=== PATIENT | male | born 1955 | race Caucasian/White ===

== ENCOUNTER 2019-04-11 23:54 | Inpatient (IN) | payer BC, OTHER ==
[~2019-04-11] VITALS: Ht 190.5 cm; Wt 124.3 kg
[2019-04-12] VITALS (7 sets, daily range): BP systolic 149–191; BP diastolic 77–96
[2019-04-12] MEDS ORDERED: FARXIGA10 MG PO (00:15)
[2019-04-12] MEDS ORDERED: MAXZIDE-25 MG1 EACH PO (00:17)
[2019-04-12] MEDS ORDERED: PEPCID40 MG PO (00:17)
[2019-04-12] MEDS ORDERED: CLARITIN10 MG PO (00:18)
[2019-04-12] MEDS ORDERED: ZANAFLEX4 MG PO (00:18)
[2019-04-12] MEDS ORDERED: PLAVIX 75 MG TA75 M1 PO (00:18)
[2019-04-12] MEDS ORDERED: ASPIR 8181 MG PO (00:18)
[2019-04-12] MEDS ORDERED: LIDOCAINE PAIN1 EACH TRANSDERM (00:19)
[2019-04-12] MEDS ORDERED: FLONASE 0.05%50 MCG NASAL (00:19)
[2019-04-12] MEDS ORDERED: VASCULERA630 MG PO (00:19)
[2019-04-12] MEDS ORDERED: OMEGA-31000 M1 PO (00:20)
[2019-04-12] MEDS ORDERED: UNICOMPLEX M TA1 TA1 PO (00:20)
[2019-04-12] MEDS ORDERED: GLUCOSAMINE HC500 MG PO (00:21)
[2019-04-12] MEDS ORDERED: ZETIA10 MG PO (00:21)
[2019-04-12] MEDS ORDERED: ZOMIG5 M1 PO (00:22)
[2019-04-12] MEDS ORDERED: EYE ITCH RELIEF5 ML OPHTHALMIC (00:23)
[2019-04-12] MEDS ORDERED: LOTEMAX5 ML OPHTHALMIC (00:24)
[2019-04-12] MEDS ORDERED: TEARS AGAIN15 ML OPHTHALMIC (00:24)
[2019-04-12] MEDS ORDERED: GLUTOSE GEL 1515 G1 PO (00:25)
[2019-04-12] MEDS ORDERED: AMLODIPINE BESY10 MG PO (00:26)
[2019-04-12 00:44] LABS: ABSOLUTE BASOPHILS 0.1 thou/uL (0.0-0.2); ABSOLUTE EOSINOPHILS 0.1 thou/uL (0.0-0.7); ABSOLUTE LYMPHOCYTES 1.7 thou/uL (0.8-5.3); ABSOLUTE MONOCYTES 0.6 thou/uL (0.0-1.2); ABSOLUTE NEUTROPHILS 4.5 thou/uL (1.6-8.1); BASOPHILS 1.1 %; EOSINOPHILS 1.1 %; HEMATOCRIT 41.5 % (42.0-52.0); HEMOGLOBIN 13.9 gm/dL (14.0-18.0); LYMPHOCYTES 24.1 %; MCH 30.1 pg (26.0-34.0); MCHC 33.5 g/dL (28.0-37.0); MONOCYTES 8.4 %; MPV 8.1 fl. (7.2-11.1); NUCLEATED RBCS 0 /100WBC; PLATELET COUNT* 235 thou/uL (150-400); POLYS 65.3 %; RBC 4.61 mil/uL (4.50-6.00); RDW-CV 14.8 % (10.5-14.5); WBC 6.9 thou/uL (4.0-11.0)
[2019-04-12 00:50] LABS: CALCIUM 8.7 mg/dL (8.5-10.1); CREATININE 1.7 mg/dL (0.6-1.3)
[2019-04-12 00:53] LABS: POTASSIUM 2.9 mmol/L (3.5-5.1)
[2019-04-12 00:55] LABS: ALBUMIN 3.1 g/dL (3.4-5.0); TOTAL BILIRUBIN 0.3 mg/dL (<0.1-1.0); TOTAL PROTEIN 5.8 g/dL (6.4-8.2)
[2019-04-12 10:56] LABS: PHOSPHORUS* 2.6 mg/dL (2.5-4.9)
--- NOTE | 2019-04-12 13:50 | NUR ---
CALLED FOR REPORT, WILL WAIT FOR HEARING AID REPAIR TECHNICIAN TO CALL BACK. PT TO GO TO ROOM 218
[2019-04-12 14:11] LABS: URINE BILIRUBIN NEGATIVE (Negative); URINE BLOOD NEGATIVE (Negative); URINE CLARITY CLEAR; URINE COLOR YELLOW; URINE GLUCOSE-RANDOM 2+ (Negative); URINE KETONES NEGATIVE (Negative); URINE LEUKOCYTES-REFLEX NEGATIVE (Negative); URINE NITRITE-REFLEX NEGATIVE (Negative); URINE PROTEIN TRACE (Negative); URINE UROBILINOGEN 0.2 E.U./dl (0.2-1.0)
--- NOTE | 2019-04-12 18:35 | NUR ---
PT VSS THIS SHIFT. PIX OF WOUND TAKEN AND DOCUMENTED. FAMILY SERVICE AIDE GAVE ADVICE ON WHAT DRESSING TO PLACE ON PT AND DR GOINS WANTS THE SITE COVERED. PT TOLERATING RA AND BEING UP AD KRISTOPHER AT THIS TIME. PT M/S STATUS. WILL CONTINUE TO MONITOR AND ASSESS
[2019-04-13] VITALS: BP 175/88
--- NOTE | 2019-04-13 01:50 | NUR ---
PT ALERT ORIENTED. UP AD KRISTOPHER IN ROOM. PT A FALL RISK AND TOLD HE NEEDS TO WEAR SOCKS AND CALL FOR ASSIST. PT REFUSE TO WEAR SOCKS AND NOT CALLING FOR ASSIST. PT STATED HE HAD MARIN THAT IS NOT BEING CONTROLLED WITH MEDICATION GIVEN. HYDROMORPHONE AND TYLENOL. PT ON HOME MED NONFORMULARY. PT PROVIDED HOME MED [place]OL[place]. UNABLE TO GIVE UNTIL PHARM DOES A VISUAL INSPECTION AND PRINTS LABLE. PT ASKED ABOUT [facility]. PT STATED IT DOES NOT WORK FOR HIM. HE STATED HIS MARIN IS LETTING UP AND HE WILL WAIT UNTIL AM. BP AT 1999 191/96 AT [place] 175/88. DR YEUNG ORDERED A ONE TIME DOSE OF IVP HYDRALAZINE. PT DRESSING FELL OF BACK OF L LEG. L LEG REDRESSED. PT TOOK DRSG OFF AND STATED IT FELT TIGHT. SUTURES OPEN TO AIR. ON MED SURG STATUS.
[2019-04-13 04:31] VITALS: BP 167/85
--- NOTE | 2019-04-13 04:46 | NUR ---
AT 0300 PT AWAKE, STATING HE STILL HAD A MARIN AND WANTED TO TRY IMATREX, PT STATED HIS STREAM WAS SLOW AND HE NEEDED A BLADDER ULTRA SOUND, ALSO HE ASKED FOR VS TO BE TAKEN AND EXTRA BLANKETS. BEFORE NURSE COULD BRING BACK BLADDER SCANNER AND VITAL SIGN MACHINE PT WAS CALLING AGAIN. BLADDER SCAN 268, SBP 190S. DR YEUNG NOTIFIED AGAIN OF ABOVE. ORDER FOR IMATREX. ORDER OBTAINED FOR IMATREX. WAITING FOR ORDER TO BE FILLED PER HS. 0400 BP 167/85.
[2019-04-13 05:23] LABS: ABSOLUTE EOSINOPHILS 0.1 thou/uL (0.0-0.7); ABSOLUTE LYMPHOCYTES 1.4 thou/uL (0.8-5.3); ABSOLUTE MONOCYTES 0.5 thou/uL (0.0-1.2); BASOPHILS 0.5 %; EOSINOPHILS 1.6 %; HEMATOCRIT 39.2 % (42.0-52.0); HEMOGLOBIN 12.9 gm/dL (14.0-18.0); LYMPHOCYTES 23.4 %; MCHC 32.9 g/dL (28.0-37.0); MCV 91.3 fL (80.0-100.0); MONOCYTES 8.2 %; MPV 8.2 fl. (7.2-11.1); NUCLEATED RBCS 0 /100WBC; PLATELET COUNT* 206 thou/uL (150-400); POLYS 66.3 %; RBC 4.29 mil/uL (4.50-6.00); RDW-CV 14.9 % (10.5-14.5)
[2019-04-13 05:35] LABS: CALCIUM 8.3 mg/dL (8.5-10.1); CREATININE 0.8 mg/dL (0.6-1.3)
[2019-04-13 05:37] LABS: POTASSIUM 2.8 mmol/L (3.5-5.1)
--- NOTE | 2019-04-13 07:02 | CON ---
[address] [address] CONSULTATION Name: MOTANELLA Clay Room: [address] IN M.R.#: [id number] Admission: 04/12/19 Attend Phys: Herman Elizabeth MD Discharge: Date of : 57 Report #: [id number] THIS REPORT FOR: //name// CC: FAM unknown Herman Elizabeth DATE OF SERVICE: 04/12/2019 INFECTIOUS DISEASE CONSULTATION ATTENDING PHYSICIAN: Herman Elizabeth MD REASON FOR EVALUATION: Left posterior medial thigh inflammatory eruption consistent with cellulitis. HISTORY OF PRESENT ILLNESS: Chart reviewed, patient examined. This is a 63-year-old gentleman with diagnosis of diabetes mellitus for the last several years, actually is traveling ____ care at the [facility] in [place], [place], who has longstanding venous stasis insufficiency, recurrent history of cellulitis of lower extremity, who apparently experienced a fall and had a laceration associated with the posterior left thigh. Three days prior, he had been evaluated and area of laceration was closed primarily with sutures. However, since his discharge from the Emergency Room, he had increasing pain associated with it, some fevers and experienced some anorexia with nausea. No oral intake since yesterday. He had an elevated lactic acid at 2.0. Ultrasound showed no evidence of focal or localized collection to suggest an abscess. He is empirically started on vancomycin and ceftriaxone. He is not encephalopathic. ALLERGIES: Listed to STATINS. CURRENT MEDICATIONS: Include, ezetimibe, multivitamin, fluticasone, tizanidine, clopidogrel, famotidine, enoxaparin, insulin, vancomycin, amlodipine, aspirin, triamterene, hydrocodone and ceftriaxone. PAST MEDICAL HISTORY: Hypertension, hyperlipidemia, vertebral arthritis, neuropathy, venous stasis insufficiency complicated by dermatitis. SOCIAL HISTORY: No ethanol, nonsmoker. No illicit drug use. FAMILY HISTORY: Noncontributory. REVIEW OF SYSTEMS: Otherwise unremarkable, except noted above. Denies any pulmonary related complaints. PHYSICAL EXAMINATION: [place] [address] CONSULTATION Name: NELLA MOTA Clay Room: [address] IN [facility]#: [id number] Admission: 04/12/19 Attend Phys: Herman Elizabeth MD Discharge: Date of : 57 Report #: [id number] GENERAL: He is alert, cooperative, [id number] distress. He is having difficulty finding a comfortable position. He is reasonably well nourished, in moderate distress. VITAL SIGNS: Temperature 97.8, pulse 85, respirations 20 and blood pressure 149/88. SKIN: Warm, dry. No rashes. HEENT: Normocephalic. Extraocular muscles intact. NECK: Supple. LUNGS: Clear to auscultation. Somewhat diminished. HEART: Regular. I do not appreciate any murmur. ABDOMEN: Soft, obese and nontender. EXTREMITIES: Left posterior calf has an irregular superficial ulceration. There is overall moderate degree of inflammation noted several centimeters. It is a raised lesion. There is no overt drainage at this point and it is palpably tender. GENITOURINARY: Deferred. RECTAL: Deferred. LABORATORY DATA: Ultrasound, soft tissue showed no abscess. TSH 1.308. Lactic acid 2.0. Electrolytes; sodium 142, potassium 2.9, chloride 99, bicarbonate is 35, anion gap of 8, BUN and creatinine 22 and 1.7 and glucose of 286. LFTs unremarkable. Albumin of 3.1. Total protein of 5.8 and estimated GFR of 41. CBC; white count of 6.9, H and H 13.9 and 41.5 and platelets of 235. ASSESSMENT AND PLAN: Left thigh skin and soft tissue infection with cellulitis. I agree with empiric antimicrobial therapy. At this point, I do not think, there is any drainable focus of infection. See how he does clinically, monitor expectantly for any changes in his overall status. At this point, he is not hemodynamically unstable nor is he encephalopathic. At some point, we will reintroduce compression to the lower extremities to below the knee. <ELECTRONICALLY SIGNED> By: Baljit Chapman MD 04/13/19 [id number] Chapman MD /nt
[2019-04-13 07:55] VITALS: BP 197/98
--- NOTE | 2019-04-13 08:20 | NUR ---
TRANSFER NOTE - REC REPORT FROM IRVIN CALDWELL. NO QUESTIONS. AGREE WITH CHARTING. ORIENTED TO CALL LIGHT AND SURROUNDINGS. WILL CONTINUE TO MONITOR.
--- NOTE | 2019-04-13 14:51 | NUR ---
PT.WALKED FAR DISTANCES IN HALLS WITH THERAPY WITHOUT DEVICE. GAIT STEADY. HE HAS A CANE AT HOME IF NEEDED. NO OTHER DME. HE LIVES IN AN RV. SAID HE IS NORMALLY INDEPENDENT. BROTHER IS SUPPORTIVE. SHOULD HAVE NO DISCHARGE NEEDS.
[2019-04-13 16:30] VITALS: BP 156/82
[2019-04-13 20:00] VITALS: BP 164/74
[2019-04-14] VITALS: BP 158/68
--- NOTE | 2019-04-14 03:44 | NUR ---
ASSESSMENT: PT REMAIN ALERT AND ORIENT TIMES FOUR. DENIES PAIN, SOB AND N/V. REMAIN ON CLEAR LIQUIDS. DOES WANT TO EAT AND STATE THAT HE BETTER GET SOMETHING TO EAT TODAY. VSS, AFEBRILE. UO ADEQUATE, DK CHUCHO. NO BM. SLEEPS WELL, EASY TO AROUSE. WAS WORRIED ABOUT HIS DOG THAT HE LEFT AT HOME. ENCOURAGEMENT GIVEN. A PLEASANT MAN TO CARE FOR. SLOW PROGRESS, WILL CONTINUE TO MONITOR.
--- NOTE | 2019-04-14 03:49 | NUR ---
ASSESSMENT: PT REMAIN ALERT AND ORIENT TIMES FOUR. UP AD KRISTOPHER IN CORRIDOR AND IN ROOM. DOES A LOT OF RANDOM COMPLAINING IE: IT'S TOO COLD, IT'S TOO HOT. YES/NO PAIN. HE WANTS WARM COMPRESS/DOESN'T THINK THAT THE WARM COMPRESSES WORKED....DID GIVE A MELENTONIN AND TRAMADOL LATER DURING THE NIGHT FOR PAIN AND TO HELP PT GET SOME SLEEP. LEFT UPPER THIGH NOTED WITH A DRIED INCISION WITH SUTURES TO BE INTACT. SOME REDNESS AND EDEMA (+2) AT THE SITE. NO OOZING NOTED. SLOW PROGRESS TOWARDS DC GOALS, WILL CONTINUE TO MONITOR.
[2019-04-14 04:00] VITALS: BP 154/78
[2019-04-14] MEDS ORDERED: DOXYCYCLINE 10100 MG PO (10:04)
[2019-04-14] MEDS ORDERED: NORCO 5-325 TA1 EAC1 PO (10:04)
[2019-04-14 11:07] VITALS: BP 154/78
[2019-04-14 15:03] VITALS: BP 154/78
[2019-04-14 15:11] VITALS: BP 154/78
== END 2019-04-14 15:35 | disposition home or self-care (01) | DRG 863 ==
LOC: M.ERS 23:54 → M.TBA-ER 04-12 01:12 → M.2W 04-12 01:12 → M.ORTHSURG 04-13 08:27
PROVIDERS: Emergency Medicine Emergency Medical Services; ADMIT Family Medicine
DX: T81.41XA Infection following a procedure, superficial incisional surgical site, initial encounter (principal); L03.116 Cellulitis of left lower limb; I50.30 Unspecified diastolic (congestive) heart failure; I13.0 Hypertensive heart and chronic kidney disease with heart failure and stage 1 through stage 4 chronic kidney disease, or unspecified chronic kidney disease; L02.416 Cutaneous abscess of left lower limb; Y83.8 Other surgical procedures as the cause of abnormal reaction of the patient, or of later complication, without mention of misadventure at the time of the procedure; E78.5 Hyperlipidemia, unspecified; E11.40 Type 2 diabetes mellitus with diabetic neuropathy, unspecified; E11.22 Type 2 diabetes mellitus with diabetic chronic kidney disease; G47.33 Obstructive sleep apnea (adult) (pediatric); E66.01 Morbid (severe) obesity due to excess calories; E87.6 Hypokalemia; I87.8 Other specified disorders of veins; N18.9 Chronic kidney disease, unspecified; Y92.89 Other specified places as the place of occurrence of the external cause; Z86.73 Personal history of transient ischemic attack (TIA), and cerebral infarction without residual deficits; Z68.34 Body mass index [BMI] 34.0-34.9, adult; Z87.891 Personal history of nicotine dependence; Z79.02 Long term (current) use of antithrombotics/antiplatelets; Z79.82 Long term (current) use of aspirin; Z79.899 Other long term (current) drug therapy; Z88.8 Allergy status to other drugs, medicaments and biological substances